=== PATIENT | male | born 1955 | race Hispanic/Latino ===

== ENCOUNTER 2018-04-16 06:39 | Day surgery (SDC) | payer BC ==
[2013-03-24 19:29] VITALS: BMI 29.8
[2018-04-16 07:26] VITALS: TEMP 98
[2018-04-16] MEDS ORDERED: Propofol 10 mg/ml Inj (20 ML) ONE ×3 (08:13→08:52)
[2018-04-16] MEDS ORDERED: Sodium Chloride 0.9% 1,000 ML IV SCH (09:00)
[2018-04-16 09:37] VITALS: O2SAT 99
[2018-04-16 10:08] VITALS: BP 125/70; PULSE 72; RESP 18
== END 2018-04-16 10:41 | disposition home or self-care (01) ==
LOC: ENDO 06:39
PROVIDERS: ATTEND Specialist
DX: Z12.11 Encounter for screening for malignant neoplasm of colon (principal); D12.4 Benign neoplasm of descending colon; K63.5 Polyp of colon; K64.8 Other hemorrhoids
CPT/HCPCS: 45380; 88305; J2001; J2405; J2704; J2765; J7030; J7040